=== PATIENT | female | born 1975 | race Caucasian/White ===

== ENCOUNTER 2020-09-18 11:29 | Emergency (ER) | payer BC, SELFPAY ==
[2020-09-18 11:30] VITALS: BP 124/66; PULSE 90; RESP 15; TEMP 35.8; O2SAT 95; BMI 21.9
[2020-09-18 11:32] VITALS: BP 124/66; PULSE 90; RESP 15; TEMP 35.8; O2SAT 95
--- NOTE | 2020-09-18 11:41 | RAD_ITS ---
STUDY: X-RAY CHEST REASON FOR EXAM: Female, 45 years old. Intermittent shortness of breath with exertion. Cough. TECHNIQUE: Single AP portable view of the chest. COMPARISON: None. FINDINGS: EKG electrodes are seen. The lungs are clear and expanded. There is no demonstrated pleural abnormality. Normal size heart. Normal mediastinum and adrián. Normal visualized pulmonary arteries. Normal visualized aortic arch and descending thoracic aorta. Normal visualized thoracic spine. Normal visualized ribs, clavicles, and shoulders. There is no demonstrated abnormality of the visualized soft tissue structures of the upper abdomen. RAD/Chest 1 View (Portable) IMPRESSION: Normal x-ray examination of the chest. Electronically Signed: Rolly Sanderson MD at 12:17 EDT , Service support ,
--- NOTE | 2020-09-18 11:41 | EKG12_ITS ---
Test Reason : Blood Pressure : / mmHG Vent. Rate : 084 BPM Atrial Rate : 084 BPM P-R Int : 134 ms QRS Dur : 084 ms QT Int : 356 ms P-R-T Axes : 057 021 035 degrees QTc Int : 420 ms Normal sinus rhythm Normal ECG Confirmed by JAQUELIN LOWRY, ALEJANDRA ([id number]), industrial editor MAHENDRA VINCENT ([id number]) on 09/19/2020 8:24:37 AM Referred By: NAVJOT Confirmed By:DARRYL HAMMER MD
--- NOTE | 2020-09-18 11:44 | NURSING ---
NO OLD EKGS
[2020-09-18 12:02] VITALS: O2SAT 100
[2020-09-18 12:18] LABS: Absolute Neutrophil Count 5.7 X10^3/uL (2.0-7.7); Basophil# 0.04 X10^3/uL; Basophil% 0.4 % (0-1); Eosinophil# 0.12 X10^3/uL; Eosinophils% 1.3 % (0-5); Hematocrit 42.1 % (37-47); Hemoglobin 13.5 g/dL (12.0-15.0); Lymphocyte % 32.6 % (19-41); Mean Corp Hgb Conc 32.1 g/dL (32-36); Mean Corpuscular Hgb 30.1 pg (27.0-32.0); Mean Platelet Vol. 10.2 fl (6.2-12.0); Monocyte# 0.49 X10^3/uL; Monocyte% 5.1 % (0-10); NRBC Flagged by Analyzer 0 % (0-5); Neutrophil # 5.73 X10^3/uL (2.7-7.7); Neutrophil % 60.2 % (47-70); Platelet Count 227 K/mm3 (150-450); RBC Distribution Width CV 13.1 % (11.6-14.6); RBC Distribution Width SD 45.1 fl (35.1-43.9); Red Blood Count 4.48 M/mm3 (4.2-5.4); White Blood Count 9.5 K/mm3 (4.4-11.0)
[2020-09-18 12:24] LABS: Anion Gap 3 (5-15); BUN 13 mg/dL (7-18); BUN/Creat Ratio 17.1 RATIO (10-20); Calcium,Total 8.7 mg/dL (8.5-10.1); Chloride 106 mmol/L (98-107); Creatinine, Serum 0.76 mg/dL (0.55-1.02); EST Glomerular Filtration Rate 87 mL/min (>60); Est Glom Filt Rate - Afr Amer 105 mL/min (>60); Estimated Creatinine Clearance 66.44 ml/min; Glucose 98 mg/dL (74-106); Potassium 3.8 mmol/L (3.5-5.1); Sodium Level 138 mmol/L (136-145)
--- NOTE | 2020-09-18 12:56 | ED.VIS.GEN ---
History of Present Illness Chief Complaint: Cough Informant: Patient Narrative: 45-year-old female presenting for the evaluation of shortness of breath. Patient states that a couple weeks ago she had a viral URI. She states she did. Time where she recovered. Over the past week she has had a slight cough and has been experiencing some mild shortness of breath. She denies any chest pain. No fever. Notes she has been under increasing stress at home. Past Medical History - Allergies and Home Meds Allergies/Adverse Reactions: Allergies No Known Allergies Allergy (Verified 09/18/20 11:32) Past Medical History: None Surgical History: noncontributory Lives: With Family Smoking Status: Current every day smoker Drugs: None Review of Systems General: Denies: Chills, Fever, Sweats Eyes: Denies: Visual changes - bilaterally, Diplopia ENT: Denies: Rhinorrhea, Sore throat Cardiovascular: Denies: Chest pain, Palpitations Respiratory: Reports: Dyspnea, Cough. Denies: Dyspnea on exertion Gastrointestinal: Denies: Abdominal pain, Nausea, Vomiting, Diarrhea, Melena, Hematochezia Genitourinary: Denies: Dysuria, Hematuria, Frequency Musculoskeletal: Denies: Back pain, Extremity Pain Skin: Denies: Rash, Wounds Neurological: Denies: Headache, Weakness, Numbness Physical Exam Vital Signs/Narrative: Vital Signs Temp Pulse Resp BP Pulse Ox 09/18/20 11:32 96.4 F L 90 15 124/66 H 95 09/18/20 11:30 96.4 F L 90 15 124/66 H 95 Inital Vital Signs reviewed: Yes General: Well nourished, Well developed, No Acute Distress Head: Normocephalic, Atraumatic Eyes: Perrl, EOMI ENT: Moist mucous membranes, No rhinorrhea Neck: Supple, Nontender Cardiovascular: Regular rate, Regular rhythm, No murmurs Respiratory: No distress, CTA bilaterally, Chest nontender Abdomen: Soft, Nontender, Nondistended, Normal bowel sounds Back: Nontender, Normal Inspection Extremities: Nontender, No edema Skin: Normal color, No rash Neurological: Alert, Oriented x3, Cranial nerves II-XII grossly intact, Normal Strength, Normal Sensation Psychological: Normal affect, Normal Mood Diagnostic/Tx/Re-eval Clinical Impression(s) from Imaging Studies Chest X-Ray 09/18/20 11:41 IMPRESSION: Normal x-ray examination of the chest. Electronically Signed: Rolly Sanderson MD at 12:17 EDT , Service support , Laboratory Last Values WBC 9.5 K/mm3 (4.4-11.0) 09/18/20 11:57 RBC 4.48 M/mm3 (4.2-5.4) 09/18/20 11:57 Hgb 13.5 g/dL (12.0-15.0) 09/18/20 11:57 Hct 42.1 % (37-47) 09/18/20 11:57 MCV 94.0 fL (81-99) 09/18/20 11:57 MCH 30.1 pg (27.0-32.0) 09/18/20 11:57 MCHC 32.1 g/dL (32-36) 09/18/20 11:57 RDW Std Deviation 45.1 fl (35.1-43.9) H 09/18/20 11:57 RDW Coeff of Estephanie 13.1 % (11.6-14.6) 09/18/20 11:57 Plt Count 227 K/mm3 (150-450) 09/18/20 11:57 MPV 10.2 fl (6.2-12.0) 09/18/20 11:57 Immature Gran % (Auto) 0.400 % (0.0-0.9) 09/18/20 11:57 Neut % (Auto) 60.2 % (47-70) 09/18/20 11:57 Lymph % (Auto) 32.6 % (19-41) 09/18/20 11:57 [place] % (Auto) 5.1 % (0-10) 09/18/20 11:57 Eos % (Auto) 1.3 % (0-5) 09/18/20 11:57 Baso % (Auto) 0.4 % (0-1) 09/18/20 11:57 Absolute Neuts (auto) 5.7 X10^3/uL (2.0-7.7) 09/18/20 11:57 Absolute Lymphs (auto) 3.10 X10^3/uL (0.83-4.51) 09/18/20 11:57 Nucleated RBC % 0 % (0-5) 09/18/20 11:57 Sodium 138 mmol/L (136-145) 09/18/20 11:57 Potassium 3.8 mmol/L (3.5-5.1) 09/18/20 11:57 Chloride 106 mmol/L (98-107) 09/18/20 11:57 Carbon Dioxide 29.0 mmol/L (21.0-32.0) 09/18/20 11:57 Anion Gap 3 (5-15) L 09/18/20 11:57 BUN 13 mg/dL (7-18) 09/18/20 11:57 Creatinine 0.76 mg/dL (0.55-1.02) 09/18/20 11:57 Estim Creat Clear Calc 66.44 ml/min 09/18/20 11:57 Est GFR (MDRD) Af Amer 105 mL/min (>60) 09/18/20 11:57 Est GFR (MDRD) Non-Af 87 mL/min (>60) 09/18/20 11:57 BUN/Creatinine Ratio 17.1 RATIO (10-20) 09/18/20 11:57 Glucose 98 mg/dL (74-106) 09/18/20 11:57 Calcium 8.7 mg/dL (8.5-10.1) 09/18/20 11:57 ED Disposition - Plan for ED Patient: Disposition: Home or Assisted Living Diagnosis: Dyspnea Instructions: ED Dyspnea Additional Instructions: Follow-up with primary care if not improving return if worsening or concerns
[2020-09-18 13:23] VITALS: BP 122/82; PULSE 98; RESP 14; O2SAT 98
== END 2020-09-18 13:24 | disposition home or self-care (01) ==
PROVIDERS: Emergency Provider Emergency Medicine
DX: R06.00 Dyspnea, unspecified (principal); R06.02 Shortness of breath; R05 Cough; F17.200 Nicotine dependence, unspecified, uncomplicated
CPT/HCPCS: 71045; 80048; 85025; 87426; 93005; 99283; A4216

== ENCOUNTER 2022-04-01 21:10 | Emergency (ER) | payer BC, SELFPAY ==
[2022-04-01 21:11] VITALS: BP 156/96; PULSE 101; RESP 16; TEMP 36.3; O2SAT 100; BMI 22.4
--- NOTE | 2022-04-01 21:58 | EDS_ITS ---
HPI History of Present Illness Chief Complaint: Headache Narrative Narrative: 46-year-old female here for intermittent headaches since this morning. The patient states headache is gradual onset, frontal location. It is intermittent, severe without alleviating factors. Patient denies sudden onset or thunderclap headache, denies medical intensive within 1 minute, vomiting, neck pain or stiffness, changes in vision, fever, history malignancy, syncope, seizures. Old chart reviewed: No recent events imaging of the head PFSH PFSH Home Medications metoclopramide HCl 5 mg tablet (Reglan) 5 mg PO Q8H PRN PRN headache 7 days #21 tabs 04/01/22 [Rx Last Taken Unknown] Allergy/AdvReac Type Severity Reaction Status Date / Time No Known Allergies Allergy Verified 04/01/22 21:14 Social History Smoking Status: Current every day smoker ROS ROS ED ROS Narrative Constitutional: Denies fever HEENT: Denies sore throat Neck: Denies neck pain Cardiovascular: Denies chest pain, syncope Respiratory: Denies shortness of breath GI: Denies nausea vomiting or abdominal pain : Denies changes in urinary habits Musculoskeletal: Denies muscle or joint pain Neurologic: Denies numbness weakness or loss of sensation, endorses headache Skin denies rash EXAM Physical Exam Narrative Exam Narrative: Nursing triage notes reviewed, Vital signs reviewed Constitutional: please see mdm HENT: MMM Eyes: Pupils equal round and reactive to light, Extraocular muscles intact Neck: No stridor, no JVD, full neck ROM Lungs: Clear to auscultation, No wheezing or rales. No increased work of breathing, no conversational dyspnea, no accessory muscle use, no nasal flaring. No respiratory distress noted Heart: Regular rate and rhythm, No murmurs, No rubs and No gallops, 2+ distal pulses (radial, femoral, posterior tibial) in all extremities Abdomen: Soft, there is no tenderness, rigidity, rebound or guarding, no obvious peritoneal signs, no palpable pulsatile abdominal masses, no auscultated abdominal bruit : No CVAT Extremities: No edema Neuro: Alert and oriented x3, neuro exam at baseline, cranial nerves II through XII are intact. No pain with extraocular muscle movement. There is negative test of skew. Normal speech. 5 of 5 strength in upper and lower extremities in flexion extension. Intact sensation to light touch in upper and lower extremity dermatomes. No truncal or extremity ataxia. No dysdiadochokinesia. Normal gait. 2+ reflexes. No meningeal signs. Negative Babinski. NIH of 0. Skin: No rash or lesions noted Const Vital Signs: 04/01/22 21:11 Temperature 97.4 F L Temperature Source Temporal Pulse Rate 101 H Respiratory Rate 16 Blood Pressure 156/96 H Blood Pressure Mean 116 Pulse Ox 100 Oxygen Delivery Method Room Air MDM MDM MDM Narrative Medical decision making narrative: 46-year-old female here for headache. History is reassuring. No focal neurologic deficits. Low suspicion but history and physical exam for life- threatening secondary headache. Gave symptomatic treatment. Discharge symptomatic treatment and neurology follow-up. Treatment and Re-Evaluation Narrative: The patient looks great and is in no significant objective discomfort currently. The patient's headache is non-specific. Exam is unremarkable. The patient is in no distress and the patient?s neurological exam is non-focal, neck is supple and without meningismus. The headache is not consistent with meningitis or infection, nor is it consistent with intracranial bleed (SAH etc.), carotid diss ection, nor mass by history and examination. Medication and outpatient follow-up was instructed. The patient was instructed to return as needed or if symptoms changed or worsened, fever developed or inability to tolerate fluids. The patient agreed with plan. Discharge Plan Triage Chief Complaint: Headache ED Provider: Rafi Garcia Dx/Rx/DC Orders Clinical Impression: Headache Instructions: ED Headache, Tension Prescriptions: New metoclopramide HCl [Reglan] 5 mg tablet 5 mg PO Q8H PRN PRN (Reason: headache) 7 Days Qty: 21 0RF Primary Care Provider: Care Physician,No Primary Referrals: Boo Rutledge MD [Med Staff - Active Staff] - Care Physician,No Primary [Primary Care Provider] - Activity Restrictions/Additional Instructions: Please take medicines as prescribed. Please return if your headache changes or worsens. Please find a local neurologist for outpatient follow-up if your headaches continue after your initial treatment course of Reglan is complete. Please return to the emergency department if your symptoms change or worsen or if develop slurred speech, difficulty ambulating, loss sensation, loss of movement Disposition Disposition: Home, Self Care
[2022-04-01] MEDS: Ibuprofen 200 MG Tablet 400 MG PO (22:28)
[2022-04-01] MEDS: dexAMETHasone 4 MG Tablet PO (22:28)
[2022-04-01] MEDS: Acetaminophen 500 MG Tablet 1000 MG PO (22:28)
[2022-04-01] MEDS: Metoclopramide 5 MG TABLET PO (22:59)
== END 2022-04-01 23:03 | disposition home or self-care (01) ==
PROVIDERS: Emergency Provider Emergency Medicine; Visit Provider Emergency Medicine
DX: R51.9 Headache, unspecified (principal); F17.200 Nicotine dependence, unspecified, uncomplicated
CPT/HCPCS: 99281; 99283

== ENCOUNTER 2024-02-26 11:06 | Emergency (ER) | payer SELFPAY ==
[2024-02-26 11:07] VITALS: BP 140/95; PULSE 104; RESP 16; TEMP 36.5; O2SAT 99; BMI 23.8
--- NOTE | 2024-02-26 11:24 | EDS_ITS ---
HPI HPI - Female History of Present Illness Chief Complaint: Vag Bleeding Informant: patient Narrative Narrative: 48-year-old female presenting to the emergency room with vaginal bleeding. Patient states that she has had 3 period in 6 months. She went to the production team member at [facility] a few months ago as she has noticed a change in her periods was felt to be perimenopausal. She states that she started having vaginal bleeding about 4 weeks ago. Over the past several hours she states the bleeding has become quite severe and she is now bleeding through tampons and pads. She denies any history of blood clotting disorders easy bruising gums bleeding uterine fibroids or other abnormal gynecologic diagnoses. Patient has not had any syncope. She notes lower pelvic cramping. [facility] Medical History Perimenopausal Home Medications ?Medication ?Instructions ?Recorded ?Last Taken ?Type metoclopramide HCl 5 mg tablet 5 mg PO Q8H PRN PRN headache 7 04/01/22 Unknown Rx (Reglan) days #21 tabs norethindrone acetate 5 mg tablet See Rx Instructions .Route 02/26/24 Unknown Rx .COMPLEX #30 tabs Allergy/AdvReac Type Severity Reaction Status Date / Time No Known Allergies Allergy Verified 02/26/24 11:09 Social History Smoking Status: Current every day smoker tobacco type: cigarettes ROS ROS ED Constitutional Constitutional ED: Reports other Details: Weight gain ; Denies chills, fever(s) or weight loss Eyes Eyes: Denies change in vision or diplopia ENT ENT ED: Denies ear pain, rhinorrhea or sore throat Cardiovascular Cardiovascular: Denies chest pain, orthopnea, palpitations or racing heartbeat Respiratory/Chest Respiratory/Chest: Denies cough, dyspnea or orthopnea Gastrointestinal Gastrointestinal: Denies abdominal pain, diarrhea, nausea or vomiting Genitourinary Genitourinary ED: Reports other Details: Abnormal vaginal bleeding pelvic cramps ; Denies dysuria, hematuria or urinary frequency Musculoskeletal Musculoskeletal: Denies arthralgias or myalgias Integumentary Denies abscess or rash Neurologic Neurologic: Denies headache(s) or weakness Psychiatric Psychiatric: Denies anxiety, depression, suicidal ideation or suicidal thoughts Endocrine Endocrinology: Denies polydipsia, polyphagia or polyuria Allergic/Immunologic Allergic/Immunologic ED: Denies mouth swelling, tongue swelling or urticaria EXAM Physical Exam Const Vital Signs: 02/26/24 11:07 Temperature 97.7 F L Temperature Source Oral Pulse Rate 104 H Respiratory Rate 16 Blood Pressure 140/95 H Blood Pressure Mean 110 Pulse Ox 99 Oxygen Delivery Method Room Air Positive well nourished and well developed General Appearance ED: well developed and NAD HEENT Reports normocephalic, head/scalp atraumatic and moist mucous membranes Eyes PERRL and EOMs intact bilaterally Neck no lymphadenopathy, supple and no JVD Resp normal respiratory effort and clear to auscultation bilaterally Cardio regular rate, regular rhythm and no murmurs GI normal to inspection, nondistended, normoactive bowel sounds and non-tender Palpation: soft Back/Spine no CVA tenderness and normal ROM Extremity normal to inspection General Extremety ED: Negative for edema General Extremity: Negative for edema Neuro oriented x3 and CN's II-XII intact bilaterally Sensorium / Orientation: alert Motor Exam: strength 5/5 throughout Psych mental status grossly normal Mood & Affect: Negative for depressed or tearful Skin no rashes or lesions noted and no wounds MDM MDM MDM Narrative Medical decision making narrative: Differential diagnosis includes but to anemia thrombocytopenia bleeding disorders uterine fibroids dysfunctional uterine bleeding/menorrhagia perimenopausal Hemoglobin returns at 13.7 with a white count of 12.5 platelet count is normal at 258 test is negative. Patient appears hemodynamically stable. I spoke with Ambika Antonio from gynecology at [facility]. Patient will be started on Aygestin. She will follow-up in the office. I do not have immediate ultrasound here but the patient is otherwise stable and I do not think based on her exam the emergent ultrasound is definitively indicated. Patient is comfortable with this plan return if worsening or concerns History & Record Review Discussion w/independent historian: Patient Lab Data Attestation: I reviewed the patient's lab results. Labs: Laboratory Results - last 24 hr 02/26/24 11:30 WBC 12.5 H RBC 4.47 Hgb 13.7 Hct 41.5 MCV 92.8 MCH 30.6 MCHC 33.0 RDW Std Deviation 45.2 H RDW Coeff of Estephanie 13.2 Plt Count 250 MPV 9.6 Immature Gran % (Auto) 0.300 Neut % (Auto) 67.1 Lymph % (Auto) 25.4 [place] % (Auto) 5.6 Eos % (Auto) 1.0 Baso % (Auto) 0.6 Absolute Neuts (auto) 8.4 H Absolute Lymphs (auto) 3.17 Nucleated RBC % 0 Serum , Qual NEGATIVE Management Discussion w/another healthcare provider: Automation Specialist (Ambika Antonio ([employer])) Discharge Plan Triage Chief Complaint: Vag Bleeding ED Provider: Dwight Hair Dx/Rx/DC Orders Clinical Impression: Menorrhagia, Perimenopausal Instructions: ED Heavy Menstrual Bleeding Prescriptions: New norethindrone acetate 5 mg tablet See Rx Instructions .ROUTE .COMPLEX Qty: 30 0RF Rx Instructions: 5 mg p.o. 3 times daily until bleeding stops, then 5 mg p.o. twice daily x 3 days, then 5 mg p.o. daily x 3 days No Action metoclopramide HCl [Reglan] 5 mg tablet 5 mg PO Q8H PRN PRN (Reason: headache) 7 Days Qty: 21 0RF Primary Care Provider: Care Physician,No Primary Referrals: Ambika Antonio CNM [Med Staff - Adv Practice Prof] - As soon as possible Care Physician,No Primary [Primary Care Provider] - Print Language: Georgian Disposition Disposition: Home, Self Care
[2024-02-26 11:36] LABS: Absolute Lymphocyte Count 3.17 X10^3/uL (0.83-4.51); Absolute Neutrophil Count 8.4 X10^3/uL (2.0-7.7); Basophil# 0.07 X10^3/uL; Basophil% 0.6 % (0-1); Eosinophil# 0.13 X10^3/uL; Hematocrit 41.5 % (37-47); Hemoglobin 13.7 g/dL (12.0-15.0); Lymphocyte # 3.17 X10^3/ul (0.83-4.51); Lymphocyte % 25.4 % (19-41); Mean Corpuscular Hgb 30.6 pg (27.0-32.0); Mean Corpuscular Volume 92.8 fL (81-99); Mean Platelet Vol. 9.6 fl (6.2-12.0); Monocyte% 5.6 % (0-10); NRBC Flagged by Analyzer 0 % (0-5); Neutrophil # 8.39 X10^3/uL (2.7-7.7); Neutrophil % 67.1 % (47-70); Platelet Count 250 K/mm3 (150-450); RBC Distribution Width CV 13.2 % (11.6-14.6); RBC Distribution Width SD 45.2 fl (35.1-43.9); Red Blood Count 4.47 M/mm3 (4.2-5.4); White Blood Count 12.5 K/mm3 (4.4-11.0)
[2024-02-26 11:45] LABS: Internal QC Validated? YES +Cl - CLEAR BKGD; Pregnancy, Serum, hCG Quali. NEGATIVE Negative
[2024-02-26 12:04] VITALS: BP 140/95; PULSE 91; RESP 16; TEMP 36.5; O2SAT 99
== END 2024-02-26 12:06 | disposition home or self-care (01) ==
PROVIDERS: Emergency Provider Emergency Medicine; Visit Provider Emergency Medicine
DX: N92.4 Excessive bleeding in the premenopausal period (principal); F17.210 Nicotine dependence, cigarettes, uncomplicated
CPT/HCPCS: 84703; 85025; 99283; A4216